=== PATIENT | male | born 1955 | race Caucasian/White ===

== ENCOUNTER 2019-12-07 15:46 | Inpatient (IN) | payer OTHER ==
[~2019-12-07] VITALS: Ht 175.3 cm; Wt 92.0 kg
[2019-12-07] MEDS ORDERED: LOSA50 PO (16:12)
[2019-12-07] MEDS ORDERED: OMEPRAZOLE20 MG PO (16:13)
[2019-12-07] MEDS ORDERED: METF500 PO (16:13)
[2019-12-07] MEDS ORDERED: ADCIRCA20 MG PO (16:14)
[2019-12-07] MEDS ORDERED: POTA10T PO (16:14)
[2019-12-07] MEDS ORDERED: Aspir 8181 MG PO (16:15)
[2019-12-07] MEDS ORDERED: ANDROGEL75 GM TOP (16:15)
[2019-12-07] MEDS ORDERED: FISH OIL 1,0001 EAC1 PO (16:16)
[2019-12-07] MEDS ORDERED: MELA3 PO (16:16)
[2019-12-07] MEDS ORDERED: ATOR40TA PO (16:16)
[2019-12-07] MEDS ORDERED: CARV6.25 PO (16:17)
[2019-12-07] MEDS ORDERED: FURO20 PO (16:17)
[2019-12-07] MEDS ORDERED: NOVOLOG FL100 UNIT/2 SC (16:18)
[2019-12-07] MEDS ORDERED: BASAGLAR K100 UNIT/1 SC (16:19)
[2019-12-07 16:34] LABS: BASOPHILS ABSOLUTE AUTO 0.07 K/mm3 (0.00-0.23); BASOPHILS PERCENT AUTO 1 % (0-2); EOSINOPHILS ABSOLUTE AUTO 0.12 K/mm3 (0.00-0.68); EOSINOPHILS PERCENT AUTO 1 % (0-6); Hematocrit 46.3 % (37.0-53.0); Hemoglobin 15.7 g/dL (13.5-17.5); IMMATURE GRAN ABSOLUTE AUTO 0.05 K/mm3 (0.00-0.10); IMMATURE GRAN PERCENT AUTO 1 % (0-1); LYMPHOCYTES PERCENT AUTO 15 % (21-46); MONOCYTES ABSOLUTE AUTO 0.66 K/mm3 (0.16-1.47); MONOCYTES PERCENT AUTO 6 % (4-13); Mean Corpuscular HGB 28.8 pg (26.0-34.0); Mean Corpuscular HGB Conc 33.9 g/dL (31.5-36.5); Mean Corpuscular Volume 85 fL (80-100); Mean Platelet Volume 10.2 fL (9.1-12.4); NEUTROPHILS ABSOLUTE AUTO 8.48 K/mm3 (1.96-9.15); NEUTROPHILS PERCENT AUTO 77 % (41-73); Platelet Count 182 K/mm3 (150-400); RDW Coefficient Variation 12.4 % (11.7-14.2); RDW Standard Deviation 37.9 fL (35.1-46.3); Red Blood Cell Count 5.46 M/mm3 (4.30-5.90); White Blood Cell Count 10.98 K/mm3 (4.00-11.30)
[2019-12-07 16:46] LABS: Alanine Aminotransfer (ALT/SGP 26 U/L (12-78); Albumin, Blood 4.2 g/dL (3.4-5.0); Albumin/Globulin Ratio 1.4 (0.8-1.8); Anion Gap 4 mmol/L (6-16); Aspartate Aminotrans (AST/SGOT 29 U/L (12-37); Bilirubin, Total 0.9 mg/dL (0.1-1.0); Blood Urea Nitrogen 15 mg/dL (8-24); Bun/Creatinine Ratio 19.6 (12.0-20.0); CO2, Blood 27 mmol/L (21-32); Calcium, Blood 8.9 mg/dL (8.5-10.1); Chloride, Blood 105 mmol/L (98-108); Creatinine, Blood 0.77 mg/dL (0.60-1.20); Globulin, Blood 2.9 g/dL (2.2-4.0); Glomerular Filtration Rate >60 (60-); Glucose, Blood 162 mg/dL (70-99); Potassium, Blood 4.4 mmol/L (3.5-5.5); Sodium, Blood 136 mmol/L (136-145); Total Protein, Blood 7.1 g/dL (6.4-8.2)
[2019-12-07 16:49] LABS: Alk Phos 73 U/L (50-136); Troponin I <0.015 ng/mL (0.000-0.040)
[2019-12-07 16:51] LABS: Magnesium, Blood 1.7 mg/dL (1.6-2.4); Phosphorus, Blood 3.1 mg/dL (2.5-4.9)
[2019-12-07] MEDS ORDERED: VITAMIN B-121000 MCG PO (19:41)
[2019-12-08 04:22] LABS: Hematocrit 44.7 % (37.0-53.0); Hemoglobin 15.1 g/dL (13.5-17.5); Mean Corpuscular HGB 28.7 pg (26.0-34.0); Mean Corpuscular HGB Conc 33.8 g/dL (31.5-36.5); Mean Corpuscular Volume 85 fL (80-100); Mean Platelet Volume 9.9 fL (9.1-12.4); Platelet Count 168 K/mm3 (150-400); RDW Coefficient Variation 12.3 % (11.7-14.2); RDW Standard Deviation 37.6 fL (35.1-46.3); Red Blood Cell Count 5.27 M/mm3 (4.30-5.90); White Blood Cell Count 9.97 K/mm3 (4.00-11.30)
[2019-12-08 04:47] LABS: Anion Gap 6 mmol/L (6-16); Blood Urea Nitrogen 15 mg/dL (8-24); Bun/Creatinine Ratio 17.1 (12.0-20.0); CO2, Blood 30 mmol/L (21-32); Calcium, Blood 8.9 mg/dL (8.5-10.1); Chloride, Blood 102 mmol/L (98-108); Creatinine, Blood 0.88 mg/dL (0.60-1.20); Glomerular Filtration Rate >60 (60-); Glucose, Blood 106 mg/dL (70-99); Potassium, Blood 3.6 mmol/L (3.5-5.5); Sodium, Blood 138 mmol/L (136-145)
--- NOTE | 2019-12-08 05:22 | NUR ---
SHIFT SUMMARY PT SLEEPING IN ROOM COMFORTABLY AT THIS TIME. NO ACUTE CHANGES IN STATUS T/O NIGHT. PT SLEPT WELL. RESP EVEN UNLABORED ON RA W/ SATS >92%. PT DENIED ANY CP OR SOB T/O NIGHT. CARDIZEM GTT TITRATED OFF WHEN HR GOT DOWN TO AVG 70-80'S. PT MAINTAINED AVG RATE T/O NIGHT. DENIED OTHER NEEDS. CALL LIT IN REACH. PT INDEPENDENT IN ROOM. WILL GIVE REPORT TO ONCOMING RN.
--- NOTE | 2019-12-08 08:00 | NUR ---
pt laying in bed watching tv, states he's doing fine, feels good and hoping to go home today, states he slept well, lungs are clear t/o, resp even and unlabored, no cough noted, hrirr, tele in place running afib per monitor, see strip, no edema noted, ppp+2, cap refill <3sec, vs stable, afebrile, iv site is clear and patent, btx4, abd flat soft nontender, voids without diff, skin c/w/d, maew, christiano, call light in reach.
--- NOTE | 2019-12-08 09:48 | NUR ---
echocardiogram complete
--- NOTE | 2019-12-08 12:19 | NUR ---
pt reports no complaints or needs at this time, b/p a bit high. will address with Dr. no further changes this shift. call light in reach.
--- NOTE | 2019-12-08 18:23 | NUR ---
pt up in room ad neville, gait steady, reports he feels fine. he states he will be going home tomorrow. no complaints except his coccyx is getting sore in the bed, will place a egg crate mattress for comfort. no further changes this shift. call light in reach.
[2019-12-09 04:22] LABS: BASOPHILS ABSOLUTE AUTO 0.07 K/mm3 (0.00-0.23); BASOPHILS PERCENT AUTO 1 % (0-2); EOSINOPHILS PERCENT AUTO 2 % (0-6); Hematocrit 48.5 % (37.0-53.0); Hemoglobin 16.3 g/dL (13.5-17.5); IMMATURE GRAN ABSOLUTE AUTO 0.05 K/mm3 (0.00-0.10); IMMATURE GRAN PERCENT AUTO 1 % (0-1); LYMPHOCYTES ABSOLUTE AUTO 1.69 K/mm3 (0.84-5.20); LYMPHOCYTES PERCENT AUTO 18 % (21-46); MONOCYTES ABSOLUTE AUTO 0.72 K/mm3 (0.16-1.47); MONOCYTES PERCENT AUTO 8 % (4-13); Mean Corpuscular HGB 28.4 pg (26.0-34.0); Mean Corpuscular HGB Conc 33.6 g/dL (31.5-36.5); Mean Corpuscular Volume 85 fL (80-100); Mean Platelet Volume 9.9 fL (9.1-12.4); NEUTROPHILS ABSOLUTE AUTO 6.87 K/mm3 (1.96-9.15); NEUTROPHILS PERCENT AUTO 72 % (41-73); Platelet Count 185 K/mm3 (150-400); RDW Coefficient Variation 12.2 % (11.7-14.2); RDW Standard Deviation 37.2 fL (35.1-46.3); Red Blood Cell Count 5.73 M/mm3 (4.30-5.90)
--- NOTE | 2019-12-09 04:38 | NUR ---
SHIFT SUMMARY A/O, ABLE TO MAKE NEEDS KNOWN. COOPERATIVE WITH CARE. CALLS AND ANSWERS QUESTIONS APPROPRIATELY. NO C/O PAIN/DISCOMFORT. INDEPENDENT IN THE ROOM. APPEARED TO REST SOME OF NIGHT. HOPEFUL TO GO HOME TODAY. REMAINS AFIB ON CONTINUOUS CARDIAC MONITORING. VSS/AFEBRILE. NO AUCTE CHANGES OVERNIGHT. BED REMAINS IN LOWEST POSITION. CALL LIGHT AND BELONGINGS WITHIN REACH. WCTM. REPORT TO ONCOMING RN.
[2019-12-09 04:44] LABS: Anion Gap 6 mmol/L (6-16); Blood Urea Nitrogen 22 mg/dL (8-24); Bun/Creatinine Ratio 23.7 (12.0-20.0); CO2, Blood 30 mmol/L (21-32); Calcium, Blood 9.6 mg/dL (8.5-10.1); Chloride, Blood 102 mmol/L (98-108); Creatinine, Blood 0.93 mg/dL (0.60-1.20); Glomerular Filtration Rate >60 (60-); Glucose, Blood 129 mg/dL (70-99); Magnesium, Blood 2.1 mg/dL (1.6-2.4); Potassium, Blood 3.7 mmol/L (3.5-5.5); Sodium, Blood 138 mmol/L (136-145)
--- NOTE | 2019-12-09 11:08 | NUR ---
The pt is ambulatory to the bathroom independently without any difficulty, reqeusting set up for a shower this morning. He states that he feels really well.
--- NOTE | 2019-12-09 15:12 | NUR ---
The pt is feeling very well, having had a shower and also a nap, he reports. Atrial fibrilation 120 average, per Raina Rodriguez, monitoring engineer tech at this time. Pt denies any symptoms.
[2019-12-10 04:19] LABS: Anion Gap 4 mmol/L (6-16); Blood Urea Nitrogen 28 mg/dL (8-24); Bun/Creatinine Ratio 28.3 (12.0-20.0); CO2, Blood 30 mmol/L (21-32); Calcium, Blood 9.2 mg/dL (8.5-10.1); Chloride, Blood 104 mmol/L (98-108); Creatinine, Blood 0.99 mg/dL (0.60-1.20); Glomerular Filtration Rate >60 (60-); Glucose, Blood 135 mg/dL (70-99); Potassium, Blood 3.7 mmol/L (3.5-5.5); Sodium, Blood 138 mmol/L (136-145)
--- NOTE | 2019-12-10 06:42 | NUR ---
SHIFT SUMMARY PT SLEEPING NI ROM COLMFORTABLY AT THIS TIME. NO ACUTE CHANGES T/O NIGHT. PT SLEPT WELL. HR REMAINS IN AFIB AND SLIGHTLY TACHY. DENIED ANY CP OR SOB. RESP EVEN UNLABORED ON RA W/ SATS >92%. PT DENIED OTHE NEEDS T/O NIHT. INDEPENDENT NI ROOM. CALL LIGHT IN REACH. PT REPORTS "I DON'T NEED BEDSIDE REPORT TODAY i'D LIKE TO SLEEP THANKS YOU".
--- NOTE | 2019-12-10 08:00 | NUR ---
pt laying in bed this am but up ad neville, a/ox3, pleasant and cooperative with care, follows commands well, denies any complaints, states hes ready to go home, lungs are clear fine crackles in bases, resp even and unlabored, no cough noted, hrirr, tele in place running afib per monitor, see strip, no edema noted, ppp+2, cap refill <3sec, vs stable, afebrile, iv site is clear and patent, to rac, btx4, abd flat soft nontender, voids without diff, skin c/w/d, maew, christiano, call light in reach.
[2019-12-10] MEDS ORDERED: CARV25 PO (09:28)
[2019-12-10] MEDS ORDERED: FURO40 PO (09:29)
[2019-12-10] MEDS ORDERED: Humalog100 UNIT/1 SC (09:35)
[2019-12-10] MEDS ORDERED: LOSA50 PO (09:36)
[2019-12-10] MEDS ORDERED: POTA10T PO (09:40)
[2019-12-10] MEDS ORDERED: XARELTO20 MG PO (09:44)
--- NOTE | 2019-12-10 11:00 | NUR ---
pt has been discharged to home, merchandise planner is assisting getting his new meds to the [facility], and they will be picking him up. went over his instructions with him, he verbalized understanding, iv removed intact, left via ambulation with his charter coach driver from [facility].
== END 2019-12-10 10:38 | disposition home or self-care (01) | DRG 291 ==
LOC: ER 15:46 → PCU 15:47
PROVIDERS: Emergency Medicine; Internal Medicine; ADMIT Internal Medicine
DX: I11.0 Hypertensive heart disease with heart failure (principal); I50.21 Acute systolic (congestive) heart failure; I48.0 Paroxysmal atrial fibrillation; E11.9 Type 2 diabetes mellitus without complications; I25.10 Atherosclerotic heart disease of native coronary artery without angina pectoris; K21.9 Gastro-esophageal reflux disease without esophagitis; G47.9 Sleep disorder, unspecified; E66.01 Morbid (severe) obesity due to excess calories; Z68.31 Body mass index [BMI] 31.0-31.9, adult; Z95.5 Presence of coronary angioplasty implant and graft; Z79.84 Long term (current) use of oral hypoglycemic drugs; Z79.82 Long term (current) use of aspirin; Z79.4 Long term (current) use of insulin; Z79.899 Other long term (current) drug therapy
CPT/HCPCS: 36415; 71046; 80048; 80053; 82330; 82947; 83735; 83880; 84100; 84439; 84443; 84484; 85025; 85027; 93005; 93010; 93306; 96365; 96375; 96376; 99285-25; G0378; J1940

== ENCOUNTER 2025-03-16 09:50 | Day surgery (SDC) | payer OTHER ==
[~2025-03-16] VITALS: Ht 175.3 cm; Wt 84.5 kg
[~2025-03-16 09:50] MED LIST: ADCIRCA20 MG PO; ANDROGEL75 GM TOP; ATOR40TA PO; Aspir 8181 MG PO; BASAGLAR K100 UNIT/1 SC; CARV25 PO; CARV6.25 PO; CENTRUM SILVER1 EAC2; FENO145; FISH OIL 1,0001 EAC1 PO; FURO20 PO; FURO40 PO; Humalog100 UNIT/1 SC; LIVALO2 MG; LOSA50 PO; Lactated Ringer's 1,000 ML IV ONE; MELA3 PO; METF500 PO; METO25ER; NITR.4SL; NOVOLOG FL100 UNIT/2 SC; OMEPRAZOLE20 MG PO; POTA10T PO; VITAMIN B-121000 MCG PO; XARELTO20 MG PO
[2025-03-16] MEDS ORDERED: Crestor40 MG (10:12)
[2025-03-16] MEDS ORDERED: JARDIANCE25 MG (10:13)
[2025-03-16] MEDS ORDERED: Lactated Ringer's 1,000 ML IV ONE (10:58)
[2025-03-16] MEDS ORDERED: propofoL 50 ML IV ONE (11:01)
[2025-03-16 12:03] VITALS: BP 124/68
== END 2025-03-16 12:09 | disposition home or self-care (01) ==
LOC: ORSCSDS 09:50
PROVIDERS: Internal Medicine Gastroenterology
PROC: 0DBN8ZX Excision of Sigmoid Colon, Via Natural or Artificial Opening Endoscopic, Diagnostic (ICD-10-PCS; principal; 2025-03-16 11:15)
PROC: 0DBM8ZX Excision of Descending Colon, Via Natural or Artificial Opening Endoscopic, Diagnostic (ICD-10-PCS; principal; 2025-03-16 11:15)
PROC: 0DBK8ZX Excision of Ascending Colon, Via Natural or Artificial Opening Endoscopic, Diagnostic (ICD-10-PCS; principal; 2025-03-16 11:15)
PROC: 0DBL8ZX Excision of Transverse Colon, Via Natural or Artificial Opening Endoscopic, Diagnostic (ICD-10-PCS; principal; 2025-03-16 11:15)
DX: K63.5 Polyp of colon (principal); D12.5 Benign neoplasm of sigmoid colon; Z86.0101 Personal history of adenomatous and serrated colon polyps; I48.91 Unspecified atrial fibrillation; E11.9 Type 2 diabetes mellitus without complications; I25.10 Atherosclerotic heart disease of native coronary artery without angina pectoris; J44.9 Chronic obstructive pulmonary disease, unspecified; E78.5 Hyperlipidemia, unspecified; I10 Essential (primary) hypertension; Z79.4 Long term (current) use of insulin; Z79.82 Long term (current) use of aspirin; Z79.01 Long term (current) use of anticoagulants; Z79.899 Other long term (current) drug therapy
CPT/HCPCS: 82947; 88305; J2704; J7120